=== PATIENT | male | born 1965 | race Caucasian/White ===

== ENCOUNTER 2017-01-01 05:49 | Outpatient (CLI) | payer OTHER ==
[~2017-01-01] VITALS: Ht 172.7 cm; Wt 120.2 kg
[~2017-01-01 05:49] MED LIST: AMLO10TA82 PO; BENA20TA72 PO; CEFD300C PO; FAMO-119 PO; HYDR-34 PO; HYDR-3812 PO; HYDR-757 PO; HYDR25TA4 PO; IBUP800T26 PO; LISI-552 PO; LISI1TAB10 PO; LISI40TA PO; ONDA8TAB13 PO; PHN100C PO; PRED20TA PO; SULF1TAB7 PO
[2017-01-01] MEDS ORDERED: LISI-552 PO (15:25)
[2017-01-01] MEDS ORDERED: LEVE750T19 PO (15:25)
== END 2017-01-01 15:29 ==
LOC: PREOP 05:49
PROVIDERS: ATTEND Surgery
DX: Z01.818 Encounter for other preprocedural examination (principal); Z12.11 Encounter for screening for malignant neoplasm of colon

== ENCOUNTER 2017-01-04 06:23 | Day surgery (SDC) | payer OTHER ==
[~2017-01-04] VITALS: Ht 172.7 cm; Wt 120.2 kg
[~2017-01-04 06:23] MED LIST changes: +LEVE750T19 PO
[2017-01-04] MEDS ORDERED: PROPOFOL INJECTION 50 ML IV ONE (06:32)
[2017-01-04] MEDS ORDERED: fentaNYL INJECTION 100 MCG/2 ML AMP ONE (06:33)
[2017-01-04] MEDS ORDERED: MIDAZOLAM 2 MG/2 ML (VERSED) VIAL ONE (06:33)
[2017-01-04] MEDS ORDERED: LACTATED RINGERS 1,000 ML IV ONE (07:10)
[2017-01-04] MEDS ORDERED: LACTATED RINGERS 1,000 ML IV STA (07:12)
[2017-01-04 07:26] VITALS: BP 141/81
[2017-01-04] MEDS ORDERED: GLYCOPYRROLATE 0.2 MG/ML (ROBINUL) 2 ML VIAL ONE (08:18)
--- NOTE | 2017-01-04 08:20 | Progress Note-Pre Operative ---
Pre-Operative Progress Note H&P Reviewed The H&P was reviewed, patient examined and no changes noted. Time Seen by Provider: 08:10 Date H&P Reviewed: Jan 04, 2017 Time H&P Reviewed: 08:12 Pre-Operative Diagnosis: screening colonoscopy MADIHA CARDONA DO Jan 04, 2017 08:20
--- NOTE | 2017-01-04 09:08 | Progress Note-Post Operative ---
Post-Operative Progess Note Surgeon (s)/G[employer] Planter (s) Surgeon MADIHA CARDONA DO [employer]: none Pre-Operative Diagnosis screening colonoscopy Post-Operative Diagnosis Polyp Diverticula Int. Hemorrhoids AVM Procedure & Operative Findings Date of Procedure 01/04/17 Procedure Performed/Findings Colon with snare Anesthesia Type IV sedation by BRAZING MACHINE OPERATOR Estimated Blood Loss Estimated blood loss (mL): scant Specimens/Packing Specimens Removed rectal polyp MADIHA CARDONA DO Jan 04, 2017 09:08
--- NOTE | 2017-01-04 09:10 | Endoscopy Discharge Instruct ---
Endo Procedure/Findings Findings 1.: Polyp 2.: Diverticulosis 3.: Internal Hemorrhoids 4.: Vascular Ectasias Discharge Instructions - Activity: You might feel a little sleepy until tomorrow. This is due to the medicine you received to relax you. Until tomorrow, you should: NOT drive a car, operate machinery or power tools. NOT drink any alcoholic beverages. NOT make any important decisions or sign importortant papers. Do not return to work until tomorrow, unless otherwise instructed. Resume previous activities tomorrow. Diet: Start by taking liquids. If you tolerate liquids, advance to solid food. Make appointment in one week, Instructions: 1.: Colonscopy in 5 years Notify Physician - If you experience excessive bleeding, unusual abdominal pain, fever, or chest pain, contact your doctor immediately. [phone] Follow-Up: - I have received and understand the above instructions and will call my doctor if I have any further questions. Patient Signature Date Nurse Signature Other (Relationship) MADIHA CARDONA DO Jan 04, 2017 09:10
[2017-01-04 09:30] VITALS: BP 118/63
[2017-01-04 10:00] VITALS: BP 113/86
[2017-01-04 10:08] VITALS: BP 113/86
--- NOTE | 2017-01-05 18:21 | OPERATIVE REPORT ---
DATE OF SERVICE: 01/04/2017 PREOPERATIVE DIAGNOSIS: Screening colonoscopy. POSTOPERATIVE DIAGNOSES: 1. Colon polyp. 2. Diverticula. 3. Internal hemorrhoids. 4. Arteriovenous malformation. PROCEDURE: Colonoscopy with snare polypectomy. SURGEON: Reji Amezcua DO. TRANSPORTATION DESIGN ENGINEER: None. ANESTHESIA: IV sedation by MAINTENANCE SCHEDULER. SPECIMEN: Rectal polyp. BLOOD LOSS: Scant. FLUIDS: Per anesthesia. POSTOPERATIVE CONDITION: Stable. INDICATION FOR PROCEDURE: The patient is a 51-year-old male who needed a screening colonoscopy, possible exposure to chemicals at [facility]. FINDINGS: The patient had diverticula in the sigmoid and descending colon. He also had a polyp in the rectal portion, just above the rectal vault. He had a small AVM seen in the descending colon as well and some small internal hemorrhoids. PROCEDURE NOTE: After informed consent was obtained, the patient was brought to the endoscopy suite, placed in the left lateral decubitus position. He was administered IV sedation during the case. His vitals were monitored by the MAINTENANCE SCHEDULER. A scope was inserted, pushed all the way to about [address], I noted some diverticula and AVM, took a picture of this and then once in the cecum, took pictures of the appendiceal orifice, noted the ileocecal valve and slowly withdrew the scope, insufflating to look circumferentially at the muñiz, looking at the cecum up the ascending colon to the hepatic flexure, then down to transverse colon, and splenic flexure. There was lot of liquid, able to suction most of this, some large pieces of retained food, but able remove these out of the way. Continued down the transverse colon, the splenic flexure, into the descending colon and then down into the sigmoid colon and finally into the rectum. Just above the rectal vault, saw a polyp, took a picture of this and then did a snare polypectomy. Removed the whole thing, sent to pathology. Then, down in the rectal vault, retroflexed in the rectal vault, saw some small internal hemorrhoids, took a picture and then removed the scope. The patient tolerated the procedure and was recovered in the endoscopy suite. Otherwise, tolerated this procedure well. Job ID: [id number] DocumentID: [id number] Dictated Date: 01/04/2017 10:30:41 Back Tender Paper Machine Date: 01/05/2017 04:13:43 Dictated By: REJI AMEZCUA, DO
== END 2017-01-04 10:07 | disposition home or self-care (01) ==
LOC: ENDO 06:23
PROVIDERS: ATTEND Surgery
DX: Z12.11 Encounter for screening for malignant neoplasm of colon (principal); D12.8 Benign neoplasm of rectum; K57.30 Diverticulosis of large intestine without perforation or abscess without bleeding; K64.8 Other hemorrhoids; I10 Essential (primary) hypertension; G47.33 Obstructive sleep apnea (adult) (pediatric); G40.909 Epilepsy, unspecified, not intractable, without status epilepticus; E66.01 Morbid (severe) obesity due to excess calories; Z87.442 Personal history of urinary calculi; Z79.899 Other long term (current) drug therapy; Z68.41 Body mass index [BMI] 40.0-44.9, adult

== ENCOUNTER → 2017-09-14 | Outpatient (CLI) | payer OTHER ==
[~2017-09-14] MED LIST changes: +ACHD5005 PO; -HYDR-3812 PO
--- NOTE | 2017-09-14 16:50 | Diagnostic Imaging Report ---
INDICATION: Left trochanteric bursitis and left hip pain. TIME OF EXAMINATION: 4:24 PM. FINDINGS: An AP view of the pelvis and two views of the left hip were obtained. The femoroacetabular alignment is normal. There is superior joint space narrowing bilaterally, consistent with degenerative change. The femoral heads and necks are intact. No fractures are seen. The rami are intact. IMPRESSION: Bilateral degenerative changes. No acute bony abnormality is detected. Dictated by: Dictated on workstation # [id number]
== END ==
LOC: RAD 15:49
PROVIDERS: ATTEND Nurse Practitioner
DX: M16.0 Bilateral primary osteoarthritis of hip (principal); M70.62 Trochanteric bursitis, left hip

== ENCOUNTER 2018-01-04 15:48 | Outpatient (RCR) | payer OTHER | END 2018-02-07 15:45 | disposition home or self-care (01) | PROVIDERS: ATTEND Nurse Practitioner | DX: M25.552 Pain in left hip (principal) ==

== ENCOUNTER 2018-08-17 12:12 | Outpatient (CLI) | payer OTHER ==
[~2018-08-17] VITALS: Ht 172.7 cm; Wt 125.2 kg
[2018-08-17 12:20] VITALS: BP 132/72
[2018-08-17] MEDS ORDERED: LISI1TAB10 PO (12:37)
[2018-08-17] MEDS ORDERED: AMLO10TA7 PO (12:37)
== END 2018-08-17 12:30 | disposition home or self-care (01) ==
LOC: PREOP 12:12
PROVIDERS: ATTEND Orthopaedic Surgery
DX: Z01.818 Encounter for other preprocedural examination (principal)
CPT/HCPCS: 87081

== ENCOUNTER 2018-08-24 08:40 | Day surgery (SDC) | payer OTHER ==
--- NOTE | 2018-08-15 12:12 | HISTORY AND PHYSICAL ---
DATE OF SERVICE: ADMISSION HISTORY AND PHYSICAL This will be for outpatient surgery on 08/24/2018 DATE OF ADMISSION: 08/24/2018. DATE OF SURGERY: 08/24/2018. HISTORY OF PRESENT ILLNESS: The patient is a 53-year-old gentleman with complaints of left hip pain. He reports -year history of pain in his groin and buttock. He reports this has been progressive in nature and activity limiting at times. He denies back pain and denies paresthesias. The patient does not desire total hip arthroplasty and elected to proceed with an injection to try to obtain some temporary relief. Radiographs revealed moderate to severe left hip osteoarthritis. REVIEW OF SYSTEMS: No chest pain, no shortness of breath. No dysuria. PAST MEDICAL HISTORY: Back pain, hypertension, sleep apnea, epilepsy. PAST SURGICAL HISTORY: Bilateral knee arthroscopies. FAMILY HISTORY: Significant for diabetes, cancer, cardiovascular disease. PRIMARY CARE PROVIDER: Dr. Mckenzie. MEDICATIONS: 1. Amlodipine. 2. Keppra. 3. Lisinopril. 4. Meloxicam. ALLERGIES: No known drug allergies. SOCIAL HISTORY: The patient denies alcohol and tobacco use. PHYSICAL EXAMINATION: GENERAL: The patient is well developed, well nourished, in no acute distress. HEENT: Normocephalic, atraumatic. Pupils equal, round and reactive to light. Oropharynx is clear. NECK: Supple, no lymphadenopathy. LUNGS: Clear to auscultation bilaterally. HEART: Regular rate and rhythm. ABDOMEN: Soft, nontender, nondistended. EXTREMITIES: The patient ambulates with a Trendelenburg gait on the left. He has pain with internal and external rotation of the hip on the left with approximately 10 degrees of internal rotation and 30 degrees of external rotation. He has pain with internal and external rotation of the hip. IMPRESSION: Left hip osteoarthritis. PLAN: Left hip intraarticular injection. The risks, benefits, options, ramifications and recovery were discussed at length with the patient. He understands and wishes to proceed. Job ID: [id number] DocumentID: [id number] Dictated Date: 08/15/2018 11:20:18 Hosiery Mender Date: 08/15/2018 12:11:02 Dictated By: DESTINY WEST MD
[~2018-08-24] VITALS: Ht 172.7 cm; Wt 125.2 kg
[~2018-08-24 08:40] MED LIST changes: +AMLO10TA7 PO
[2018-08-24 09:00] VITALS: BP 127/85
[2018-08-24] MEDS: LACTATED RINGERS 1,000 ML IV PRN ×2 (09:20→11:45)
[2018-08-24] MEDS ORDERED: HYDROcodone/APAP 7.5 MG/325 MG (LORTAB, LORCET PLUS) TABLET PO PRN (09:30)
[2018-08-24] MEDS ORDERED: DEXAMETHASONE 10 MG/ML (DECADRON) 1 ML VIAL ONE (09:48)
[2018-08-24] MEDS ORDERED: LIDOCAINE 1% INJ 20 ML 20 ML VIAL ONE (09:48)
[2018-08-24] MEDS ORDERED: BUPIVACAINE 0.25% 30 ML (SENSORCAINE) VIAL ONE (09:48)
[2018-08-24] MEDS ORDERED: MIDAZOLAM 2 MG/2 ML (VERSED) VIAL ONE (10:05)
[2018-08-24] MEDS ORDERED: methylPREDNISolone 40 MG/ML (DEPO MEDROL) VIAL ONE ×2 (11:17→11:39)
[2018-08-24] MEDS ORDERED: IOPAMIDOL 61% 30 ML (ISOVUE 300) VIAL IV ONE (11:22)
[2018-08-24] MEDS ORDERED: proPOfol 200 MG/20 ML (DIPRIVAN) VIAL IV ONE (11:22)
[2018-08-24] MEDS ORDERED: ONDANSETRON 4 MG/2 ML (SDV) Z0FRAN IVP PRN (12:00)
[2018-08-24] MEDS ORDERED: morphine INJ 10 MG/ML 1ML (SYR OR VIAL) IVP ONE (12:00)
[2018-08-24] MEDS ORDERED: MEPERIDINE (DEMEROL) INJ 50 MG/ML IVP ONE (12:00)
--- NOTE | 2018-08-24 12:15 | OPERATIVE REPORT ---
DATE OF SERVICE: 08/24/2018 PREOPERATIVE DIAGNOSIS: Left hip primary osteoarthritis. POSTOPERATIVE DIAGNOSIS: Left hip primary osteoarthritis. PROCEDURE: Left hip intraarticular injection. SURGEON: Destiny West MD REGISTERED PHARMACY TECHNICIAN: FLOR Knight, who assisted throughout the procedure. ANESTHESIA: Monitored anesthesia care. ESTIMATED BLOOD LOSS: Is not applicable. DRAINS: None. COMPLICATIONS: None. POSTOPERATIVE PLAN: No impact activities for 24 hours. The patient was transferred to the recovery room awake and in stable condition. STATEMENT OF MEDICAL NECESSITY: The patient is a 53-year-old gentleman with known osteoarthritis of his left hip. He was not desiring any total hip arthroplasty and was trying to obtain symptomatic relief; therefore, elected to proceed with an intraarticular injection understanding that this would not cure his arthritis, but could provide some symptomatic relief. DESCRIPTION OF PROCEDURE: After risks and benefits of procedure were discussed and questions were answered and informed consent was signed and placed on chart, the operative site was confirmed in the preoperative holding and initialed by the surgeon. The patient was transferred to the operating room and after adequate levels of monitored anesthesia care was obtained, a timeout was called confirming the operative site. Under sterile conditions, the lateral aspect of the left hip was injected with plain lidocaine. Then, under fluoroscopic guidance, a spinal needle was passed intraarticularly and an arthrogram was performed confirming intraarticular placement. The hip joint was then injected with 80 mg of Depo-Medrol and 2 mg of Marcaine. The needle was withdrawn. The patient was transferred to recovery room awake and in stable condition. Job ID: [id number] DocumentID: [id number] Dictated Date: 08/24/2018 09:30:55 Patternmaker [employer] Date: 08/24/2018 12:14:33 Dictated By: DESTINY WEST MD
[2018-08-24 12:18] VITALS: BP 116/76
[2018-08-24] MEDS ORDERED: ACHD5005 PO (12:27)
[2018-08-24 12:48] VITALS: BP 123/84
[2018-08-24 13:00] VITALS: BP 123/84
--- NOTE | 2018-08-24 13:30 | Anesthesia-General Post-Op ---
MAC Patient Condition Mental Status/LOC: Same as Preop Cardiovascular: Satisfactory Nausea/Vomiting: Absent Respiratory: Satisfactory Pain: Controlled Complications: Absent Post Op Complications Complications None Follow Up Care/Instructions Patient Instructions None needed. Anesthesiology Discharge Order Discharge Order Patient is doing well, no complaints, stable vital signs, no apparent adverse anesthesia problems. No complications reported per nursing. JOSE ROBERTO ELLIOTT CRNA Aug 24, 2018 13:30
--- NOTE | 2018-08-24 15:51 | Diagnostic Imaging Report ---
INDICATION: Fluoroscopy for left hip injection. EXAMINATION: Fluoroscopy was provided for Dr. Linn for left hip injection. FINDINGS: 7 seconds of fluoroscopy was utilized. Single image of the left hip demonstrates a small amount of intra-articular contrast. IMPRESSION: Fluoroscopy for left hip injection. Dictated by: Dictated on workstation # [id number]
== END 2018-08-24 13:00 | disposition home or self-care (01) ==
LOC: SDC 08:40
PROVIDERS: ATTEND Orthopaedic Surgery
DX: M16.12 Unilateral primary osteoarthritis, left hip (principal); I10 Essential (primary) hypertension; G40.909 Epilepsy, unspecified, not intractable, without status epilepticus; G47.33 Obstructive sleep apnea (adult) (pediatric); Z79.899 Other long term (current) drug therapy

== ENCOUNTER → 2020-04-02 | Outpatient (CLI) | payer OTHER ==
[~2020-04-02] MED LIST changes: +AMLO-251 PO; -AMLO10TA7 PO; +LISI1TAB26 PO
--- NOTE | 2020-04-02 15:04 | Diagnostic Imaging Report ---
INDICATION: Left foot pain. TIME OF EXAM: 11:14 AM 3 views of the left foot were obtained. FINDINGS: The metatarsals are intact. Phalanges are intact. Midfoot and hindfoot are unremarkable apart from posterior and plantar calcaneal spurs. No fractures are seen. IMPRESSION: No acute bony abnormality is detected. Dictated by: Dictated on workstation # [id number]
== END ==
LOC: RAD 11:01
PROVIDERS: ATTEND Physician Assistant
DX: M79.672 Pain in left foot (principal)
CPT/HCPCS: 73630

== ENCOUNTER → 2020-04-03 | Outpatient (CLI) | payer OTHER | LOC: LABNPT 08:17 | PROVIDERS: ATTEND Physician Assistant | DX: R51.9 Headache, unspecified (principal); Z20.828 Contact with and (suspected) exposure to other viral communicable diseases | CPT/HCPCS: 87635 ==

== ENCOUNTER → 2020-04-29 | Outpatient (CLI) | payer OTHER ==
--- NOTE | 2020-04-29 16:59 | Diagnostic Imaging Report ---
PROCEDURE: MR imaging left lower extremity without contrast. TECHNIQUE: Multiplanar, multisequence non contrast enhanced MR imaging of the left lower extremity was accomplished. INDICATION: Left foot pain and swelling. Plantar fascial fibromatosis. COMPARISON: Radiographs from 04/02/2020. FINDINGS: No acute fracture is seen in the left foot and ankle. There is moderate bone marrow edema in the cuboid with mild bone marrow edema in the navicular, cuneiforms and metatarsal bases. Multiple erosions are seen in the cuboid, the 2nd through 4th metatarsal bases and the lateral cuneiform. Erosive changes seen at the anterior navicular as well. There is a focal osteochondral lesion at the medial talar dome. The anterior and posterior syndesmotic ligaments are intact. The anterior and posterior talofibular ligaments are intact. The calcaneofibular ligament is intact. The deep fibers of the deltoid ligament are intact. The spring ligament appears intact. The sinus tarsi demonstrates normal fatty signal. There is mild thickening at the origin of the central plantar fascia with no tear seen. No nodularity is seen of the plantar fascia. The Achilles tendon is intact. There is increased fluid in the peroneal tendon sheath consistent with a moderate tenosynovitis. There is moderate tendinosis of the peroneus longus tendon with longitudinal split tearing of the inframalleolar tendon. The peroneus brevis tendon is intact. The flexor tendons are intact. The extensor tendons are intact. There is moderate edema and atrophy in the musculature about the foot. No masses or fluid collections are seen. IMPRESSION: 1. Multifocal erosive changes in the midfoot, concerning for inflammatory arthropathy such as rheumatoid or possibly gout. 2. Moderate peroneal tenosynovitis with tendinosis and partial tearing of the peroneus longus tendon. 3. Generalized muscular atrophy and edema, which is nonspecific, may be neurogenic. 4. Mild thickening at the origin of the plantar fascia, no nodularity is seen. Dictated by: Dictated on workstation # [id number]
== END ==
LOC: RAD 15:30
PROVIDERS: ATTEND Podiatrist
DX: M72.2 Plantar fascial fibromatosis (principal)

== ENCOUNTER 2021-06-02 13:07 | Emergency (ER) | payer OTHER ==
[~2021-06-02 13:07] MED LIST changes: -LISI-552 PO; -LISI1TAB26 PO; +LISI1TAB48 PO; +LISI20TA26 PO
[2021-06-02] MEDS ORDERED: morphine INJ 10 MG/ML 1ML (SYR OR VIAL) IVP STA ×2 (14:09→16:03)
[2021-06-02] MEDS ORDERED: ONDANSETRON 4 MG/2 ML (SDV) Z0FRAN IVP ONE (14:15)
[2021-06-02] MEDS ORDERED: NS IV 1000 ML 1,000 ML IV SCH (14:15)
[2021-06-02 14:33] LABS: BASOPHILS # (AUTO) 0.1 10^3/uL (0.0-0.1); BASOPHILS % (AUTO) 1 % (0-10); EOSINOPHILS # (AUTO) 0.2 10^3/uL (0.0-0.3); EOSINOPHILS % (AUTO) 2 % (0-10); HEMATOCRIT 48 % (40-54); HEMOGLOBIN 16.7 g/dL (13.3-17.7); LYMPHOCYTES % (AUTO) 17 % (12-44); MEAN CORPUSCULAR HEMOGLOBIN 30 pg (25-34); MEAN CORPUSCULAR HGB CONC 35 g/dL (32-36); MEAN CORPUSCULAR VOLUME 88 fL (80-99); MEAN PLATELET VOLUME 8.9 fL (9.0-12.2); MONOCYTES # (AUTO) 0.8 10^3/uL (0.0-1.0); MONOCYTES % (AUTO) 7 % (0-12); NEUTROPHILS # (AUTO) 8.7 10^3/uL (1.8-7.8); NEUTROPHILS % (AUTO) 73 % (42-75); PLATELET COUNT 215 10^3/uL (130-400); WHITE BLOOD COUNT 11.9 10^3/uL (4.3-11.0)
--- NOTE | 2021-06-02 14:34 | ED Abdominal Pain ---
General Chief Complaint: Abdominal/GI Problems Stated Complaint: ABD PAIN Nursing Triage Note: AMB TO ROOM WITH C/O OF LOW ABD PAIN ONSET LAST NIGHT. Source of Information: Patient Exam Limitations: No Limitations (MINDI SAAMNIEGO STUDENT) History of Present Illness Date Seen by Provider: Jun 02, 2021 Time Seen by Provider: 14:15 Initial Comments 56 yoM presents to ED with cc of lower abdominal pain that began last night around 8PM. He was able to sleep last night but awoke to worsening pain radiating into scrotum which is now rated 9/10. Pain is aggravated by movement. Patient has not defecated or passed gas today but is able to urinate and denies hematuria, N/V, SOA, and chest pain. Abdomen is tender in both lower quadrants and he is guarding but bowel sounds are audible. Patient reports kidney stones in distant past and believes this pain may be similar. He is notably uncomfortable and will be given morphine while awaiting CBC, UA, and CT. Timing/Duration: 12-24 Hours Severity/Quality: Severe Location: RLQ, LLQ Radiation: Groin Modifying Factors: Improves With Movement Associated Symptoms: No Back Pain, No Chest Pain, No Fever/Chills, No Headache, No Nausea/Vomiting, No Shortness of Air (MINDI SAMANIEGO STUDENT) Allergies and Home Medications Allergies Coded Allergies: No Known Drug Allergies (Unverified , 01/01/17) Patient Home Medication List Home Medication List Reviewed: Yes (KARAN RODRIGUEZ MD) Amlodipine Besylate (Amlodipine Besylate) 10 Mg Tablet, 10 MG PO DAILY, (Reported) Entered as Reported by: JOSE MERINO on 08/17/18 1237 Ciprofloxacin HCl (Cipro) 500 Mg Tablet, 500 MG PO BID Prescribed by: KARAN RODRIGUEZ on 06/02/21 1608 Hydrocodone Bit/Acetaminophen (Lortab 5 Mg Tablet) 1 Tab Tab, 1 TAB PO Q4H PRN for PAIN-MODERATE Prescribed by: PAMELA TORREZ on 08/24/18 1227 Hydrocodone/Acetaminophen (Hydrocodone-Acetamin 7.5-325) 1 Each Tablet, 1 EACH PO Q6H PRN for PAIN-MODERATE (5-7) Prescribed by: KARAN RODRIGUEZ on 06/02/21 1609 Levetiracetam (Keppra) 750 Mg Tablet, 750 MG PO BID, (Reported) Entered as Reported by: TRISTON DOLAN on 01/01/17 1525 Lisinopril/Hydrochlorothiazide (Lisinopril-Hctz 20-25 mg Tab) 1 Each Tablet, 1 EACH PO DAILY, (Reported) Entered as Reported by: JOSE MERINO on 08/17/18 1237 Metronidazole (Metronidazole) 500 Mg Tablet, 500 MG PO TID Prescribed by: KARAN RODRIGUEZ on 06/02/21 1608 Ondansetron (Ondansetron Odt) 4 Mg Tab.rapdis, 4 MG PO Q8H PRN for nausea Prescribed by: KARAN RODRIGUEZ on 06/02/21 1608 Review of Systems Review of Systems Constitutional: No chills, No diaphoresis, No dizziness, No fever EENTM: No Nose Congestion, No Throat Pain Respiratory: Denies Cough, Denies Shortness of Air, Denies Wheezing Cardiovascular: Denies Chest Pain, Denies Edema, Denies Syncope Gastrointestinal: Abdominal Pain; Denies Blood Streaked Stools; Constipated; Denies Diarrhea, Denies Nausea, Denies Vomiting Genitourinary: Denies Flank Pain, Denies Hematuria, Denies Urgency Musculoskeletal: No muscle stiffness, No muscle cramps Skin: no symptoms reported Psychiatric/Neurological: Denies Headache, Denies Weakness Endocrine: Denies Excessive Sweating, Denies Flushing, Denies Increased Hunger, Denies Increased Thrist Hematologic/Lymphatic: No Symptoms Reported ([employer]) Past Luxjobk-Qvllmg-Gvyarf Hx Patient Social History Tobacco Use?: No Use of E-Cig and/or Vaping dev: No Substance use?: No ([employer]) Immunizations Up To Date First/Initial COVID19 Vaccinat: JULY Second COVID19 Vaccination Pavan: AUGUST 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[employer] ([employer]) Seasonal Allergies Seasonal Allergies: No ([employer]) Past Medical History Surgeries: Yes (right/left meniscus X3) Orthopedic Respiratory: No Sleep Apnea Currently Using CPAP: Yes Cardiac: Yes Hypertension Neurological: Yes (SEIZURE DISORDER/TREMORS IN HANDS) Seizure Disorder Reproductive Disorders: No Sexually Transmitted Disease: No HIV/AIDS: No Genitourinary: No Kidney Stones Gastrointestinal: No Musculoskeletal: Yes (IN KNEES) Arthritis Endocrine: No HEENT: No Loss of Vision: Denies Hearing Impairment: Denies Cancer: No Psychosocial: No Integumentary: No Blood Disorders: No Adverse Reaction/Blood Tranf: No (N/A) (MINDI SAMANIEGO [employer] STUDENT) Family Medical History No Pertinent Family Hx (ZEYNEPMINDI WHITMAN [employer] STUDENT) Physical Exam Vital Signs Vital Signs - First Documented 06/02/21 13:29 Temp 36.7 Pulse 75 Resp 18 B/P (MAP) 184/117 (139) Pulse Ox 99 O2 Delivery Room Air (KARAN RODRIGUEZ MD) Vital Signs Capillary Refill : Less Than 3 Seconds (MINDI SAMANIEGO [employer] STUDENT) Height/Weight/BMI Height: 5'8.00" Weight: 276lbs. 0.0oz. 125.714192is; 42.0 BMI Method:Stated General Appearance: WD/WN, mild distress HEENT: PERRL/EOMI, normal ENT inspection, pharynx normal Neck: non-tender, full range of motion, supple, normal inspection Respiratory: chest non-tender, lungs clear, normal breath sounds, no respiratory distress, no accessory muscle use Cardiovascular: no edema, no gallop, no JVD, no murmur Gastrointestinal: normal bowel sounds, guarding, rebound, tenderness Rectal: deferred Extremities: non-tender, normal inspection, no pedal edema, no calf tenderness Skin: normal color, warm/dry Lymphatic: no adenopathy (ZEYNEPMINDI WHITMAN [employer] STUDENT) Progress/Results/Core Measures Results/Orders Lab Results Laboratory Tests Test 06/02/21 14:24 06/02/21 14:38 Range/Units White Blood Count 11.9 H 4.3-11.0 10^3/uL Red Blood Count 5.49 4.30-5.52 10^6/uL Hemoglobin 16.7 13.3-17.7 g/dL Hematocrit 48 40-54 % Mean Corpuscular Volume 88 80-99 fL Mean Corpuscular Hemoglobin 30 25-34 pg Mean Corpuscular Hemoglobin Concent 35 32-36 g/dL Red Cell Distribution Width 12.6 10.0-14.5 % Platelet Count 215 130-400 10^3/uL Mean Platelet Volume 8.9 L 9.0-12.2 fL Immature Granulocyte % (Auto) 1 % Neutrophils (%) (Auto) 73 42-75 % Lymphocytes (%) (Auto) 17 12-44 % Monocytes (%) (Auto) 7 0-12 % Eosinophils (%) (Auto) 2 0-10 % Basophils (%) (Auto) 1 0-10 % Neutrophils # (Auto) 8.7 H 1.8-7.8 10^3/uL Lymphocytes # (Auto) 2.0 1.0-4.0 10^3/uL Monocytes # (Auto) 0.8 0.0-1.0 10^3/uL Eosinophils # (Auto) 0.2 0.0-0.3 10^3/uL Basophils # (Auto) 0.1 0.0-0.1 10^3/uL Immature Granulocyte # (Auto) 0.1 0.0-0.1 10^3/uL Sodium Level 137 135-145 MMOL/L Potassium Level 3.5 L 3.6-5.0 MMOL/L Chloride Level 102 98-107 MMOL/L Carbon Dioxide Level 25 21-32 MMOL/L Anion Gap 10 5-14 MMOL/L Blood Urea Nitrogen 10 7-18 MG/DL Creatinine 0.74 0.60-1.30 MG/DL Estimat Glomerular Filtration Rate 110 BUN/Creatinine Ratio 14 Glucose Level 100 70-105 MG/DL Calcium Level 9.3 8.5-10.1 MG/DL Urine Color YELLOW Urine Clarity CLEAR Urine pH 6.0 5-9 Urine Specific [place] 1.020 1.016-1.022 Urine Protein NEGATIVE NEGATIVE Urine Glucose (UA) NEGATIVE NEGATIVE Urine Ketones NEGATIVE NEGATIVE Urine Nitrite NEGATIVE NEGATIVE Urine Bilirubin NEGATIVE NEGATIVE Urine Urobilinogen 0.2 < = 1.0 MG/DL Urine Leukocyte Esterase NEGATIVE NEGATIVE Urine RBC (Auto) TRACE-I H NEGATIVE Urine RBC NONE /HPF Urine WBC NONE /HPF Urine Squamous Epithelial Cells NONE /HPF Urine Crystals NONE /LPF Urine Bacteria NEGATIVE /HPF Urine Casts NONE /LPF Urine Mucus NEGATIVE /LPF Urine Culture Indicated NO (KARAN RODRIGUEZ MD) My Orders Orders - KARAN RODRIGUEZ MD Ed Iv/Invasive Line Start (06/02/21 14:09) Cbc With Automated Diff (06/02/21 14:09) Basic Metabolic Panel (06/02/21 14:09) Ua Culture If Indicated (06/02/21 14:09) Ns Iv 1000 Ml (Sodium Chloride 0.9%) (06/02/21 14:15) Morphine Injection (Morphine Injection (06/02/21 14:09) Ondansetron Injection (Zofran Injectio (06/02/21 14:15) Ct Abdomen/Pelvis Wo (06/02/21 14:20) Ciprofloxacin Iv 400mg/200ml (Cipro Iv S (06/02/21 16:00) Metronidazole 500mg/100ml Ivpb (Flagyl 5 (06/02/21 16:00) Morphine Injection (Morphine Injection (06/02/21 16:03) Hydrocodone/Apap 7.5/325 Tab (Lortab 7. (06/02/21 16:45) (KARAN RODRIGUEZ MD) Medications Given in ED (KARAN RODRIGUEZ MD) Vital Signs/I&O 06/02/21 06/02/21 13:29 18:09 Temp 36.7 Pulse 75 56 Resp 18 18 B/P (MAP) 184/117 (139) 140/87 Pulse Ox 99 97 O2 Delivery Room Air Room Air (KARAN RODRIGUEZ MD) Blood Pressure Mean: 139 Progress Progress Note : Time: 16:03 Progress Note 56-year-old male chief complaint diffuse lower abdominal pain. Onset last evening about 8 or 9. Was able to sleep however when he got up this morning he had worsening pain. It radiates down into the scrotum. Patient has not had a bowel movement since yesterday and normally goes every day. He is slightly nauseous, anorexic. No reported fevers or chills. No chest pain, shortness of breath, URI symptoms. Physical exam is remarkable for significant abdominal tenderness with involuntar y guarding no real rebound. Bowel sounds are present. Pain is not really focal but diffuse across the entire lower abdomen. Rest of his exam is reassuring. He is quite hypertensive, likely secondary to pain. Further history reveals that the patient had a colonoscopy about 5 years ago, this was unremarkable. He tells me that he has been eating more popcorn over the course of the last week. He was concerned that this might be the cause of his current state. CT scan of the abdomen and pelvis shows pretty significant diverticulitis without evidence of abscess or perforation. Patient has been treated with a liter of IV fluids here in the department. He has gotten IV morphine, Cipro and Flagyl. Anticipate being able to control his pain with hydrocodone on an outpatient basis with Cipro and Flagyl for the next 10 days. Follow-up with general surgery, Dr. Hay. Follow-up also with his primary care physician. Patient seems comfortable with this plan of care. All questions have been sought and answered. (KARAN RODRIGUEZ MD) Diagnostic Imaging Diagonstic Imaging: CT Comments [facility] [place], [place] NAME: JR SEARS [facility] REC#: [id number] PT STATUS: REG ER : 1965 PHYSICIAN: KAARN RODRIGUEZ MD ADMIT DATE: 06/02/21/ER Draft Date of Exam:06/02/21 CT ABDOMEN/PELVIS WO PROCEDURE: CT abdomen and pelvis without contrast. TECHNIQUE: Multiple contiguous axial images were obtained through the abdomen and pelvis without the use of intravenous contrast. Auto Exposure Controls were utilized during the CT exam to meet ALARA standards for radiation dose reduction. INDICATION: Lower abdominal pain. CORRELATION is made with prior CT from 04/28/2015. The lung bases are clear. There appears to be some generalized low density throughout the liver consistent with hepatic steatosis. No discrete liver mass is detected. Gallbladder is unremarkable. There is no biliary ductal dilatation. The pancreas and spleen are unremarkable. No adrenal mass is detected. No renal calculi or hydronephrosis is detected. There is diverticulosis of the descending and sigmoid colon. There is significant inflammation at the junction of the descending colon and sigmoid. There is a segment of wall thickening and significant surrounding inflammatory stranding. Features are consistent with acute diverticulitis. No abscess formation or bowel obstruction is seen. There is no free air. There is a small fat-containing umbilical hernia. No free fluid is seen. The bladder and prostate are unremarkable. There is a left hip prosthesis. IMPRESSION: 1. Uncomplicated diverticulosis. 2. Features consistent with acute diverticulitis of the junction of the descending colon and sigmoid. No abscess formation or bowel obstruction is identified. Dictated on workstation # [id number] Dict: 06/02/21 1450 Trans: 06/02/21 1457 [facility] [id number] Interpreted by: ESTEPHANIA CARTER MD Electronically signed by: (KARAN RODRIGUEZ MD) Departure Impression Primary Impression: Acute diverticulitis Disposition: HOME, SELF-CARE Condition: Stable Departure-Patient Inst. Decision time for Depature: 16:06 (KARAN RODRIGUEZ MD) Referrals: SOPHIA VOGEL MD (PCP/Family) Primary Care Physician Patient Instructions: Diverticulitis Add. Discharge Instructions: Follow a clear liquid diet for the next 12 to 24 hours. Take the antibiotics as scheduled, Flagyl for 7 days 3 times a day, Cipro twice a day for 10 days. I have also prescribed pain and nausea medications for you. The hydrocodone can become habit forming. Do not drive and take this medication. You should take stool softeners daily, twice a day such as Colace. Also follow a diet rich in green leafy vegetables, fruits such as berries, apple juice and prune juice. Follow-up with your primary care physician. I am also placing contact information for general surgery, Dr. Hay on your discharge paperwork. You may need a repeat colonoscopy once this infection is healed. Return to the emergency room for worsening pain, vomiting, symptoms not improving after 48 hours or any other emergent concerns Scripts Ondansetron (Ondansetron Odt) 4 Mg Tab.rapdis 4 MG PO Q8H PRN for nausea, #20 TAB Prov: KARAN RODRIGUEZ MD 06/02/21 Hydrocodone/Acetaminophen (Hydrocodone-Acetamin 7.5-325) 1 Each Tablet 1 EACH PO Q6H PRN for PAIN-MODERATE (5-7), #20 TAB Prov: KARAN RODRIGUEZ MD 06/02/21 Metronidazole (Metronidazole) 500 Mg Tablet 500 MG PO TID for 7 Days, #21 TAB Prov: KARAN RODRIGUEZ MD 06/02/21 Ciprofloxacin HCl (Cipro) 500 Mg Tablet 500 MG PO BID, #20 TAB Prov: KARAN RODRIGUEZ MD 06/02/21 Verification and Attestation of Medical Student E/M Service A medical student performed and documented this service in my presence. I reviewed and verified all information documented by the medical student and made modifications to such information, when appropriate. I personally performed the physical exam and medical decision making. Karan Rodriguez, Jun 02, 2021,16:11 (KARAN RODRIGUEZ MD) Copy Copies To 1: SOPHIA VOGEL MD, AMANDA MED STUDENT Jun 02, 2021 14:34 KARAN RODRIGUEZ MD Jun 02, 2021 15:24
[2021-06-02 14:44] LABS: POTASSIUM 3.5 MMOL/L (3.6-5.0)
[2021-06-02 14:45] LABS: CALCIUM 9.3 MG/DL (8.5-10.1)
[2021-06-02 14:46] LABS: BILIRUBIN,URINE NEGATIVE (NEGATIVE); CLARITY,URINE CLEAR; COLOR,URINE YELLOW; GLUCOSE, URINE (UA) NEGATIVE (NEGATIVE); KETONES,URINE NEGATIVE (NEGATIVE); LEUKOCYTE ESTERASE ,URINE NEGATIVE (NEGATIVE); NITRITE,URINE NEGATIVE (NEGATIVE); PROTEIN,URINE NEGATIVE (NEGATIVE)
[2021-06-02 14:49] LABS: CREATININE SERUM 0.74 MG/DL (0.60-1.30)
--- NOTE | 2021-06-02 14:57 | Diagnostic Imaging Report ---
PROCEDURE: CT abdomen and pelvis without contrast. TECHNIQUE: Multiple contiguous axial images were obtained through the abdomen and pelvis without the use of intravenous contrast. Auto Exposure Controls were utilized during the CT exam to meet ALARA standards for radiation dose reduction. INDICATION: Lower abdominal pain. CORRELATION is made with prior CT from 04/28/2015. The lung bases are clear. There appears to be some generalized low density throughout the liver consistent with hepatic steatosis. No discrete liver mass is detected. Gallbladder is unremarkable. There is no biliary ductal dilatation. The pancreas and spleen are unremarkable. No adrenal mass is detected. No renal calculi or hydronephrosis is detected. There is diverticulosis of the descending and sigmoid colon. There is significant inflammation at the junction of the descending colon and sigmoid. There is a segment of wall thickening and significant surrounding inflammatory stranding. Features are consistent with acute diverticulitis. No abscess formation or bowel obstruction is seen. There is no free air. There is a small fat-containing umbilical hernia. No free fluid is seen. The bladder and prostate are unremarkable. There is a left hip prosthesis. IMPRESSION: 1. Uncomplicated diverticulosis. 2. Features consistent with acute diverticulitis of the junction of the descending colon and sigmoid. No abscess formation or bowel obstruction is identified. Dictated by: Dictated on workstation # [id number]
[2021-06-02 15:35] LABS: BACTERIA,URINE NEGATIVE /HPF
[2021-06-02] MEDS ORDERED: CIPROFLOXACIN IV 400MG/200ML 200 ML IV ONE (16:00)
[2021-06-02] MEDS ORDERED: metroNIDAZOLE 500MG/100ML IVPB 100 ML IV ONE (16:00)
[2021-06-02] MEDS ORDERED: CIPR-225 PO (16:08)
[2021-06-02] MEDS ORDERED: ONDA4TAB11 PO (16:08)
[2021-06-02] MEDS ORDERED: HYDR-3817 PO (16:08)
[2021-06-02] MEDS ORDERED: METR-145 PO (16:08)
[2021-06-02] MEDS ORDERED: HYDROcodone/APAP 7.5 MG/325 MG (LORTAB, LORCET PLUS) TABLET PO ONE (16:45)
[2021-06-02 18:09] VITALS: BP 140/87
== END 2021-06-02 18:08 | disposition home or self-care (01) ==
LOC: EDUNIT# 13:07 → ER 13:09
DX: K57.32 Diverticulitis of large intestine without perforation or abscess without bleeding (principal); G47.30 Sleep apnea, unspecified; I10 Essential (primary) hypertension; G40.909 Epilepsy, unspecified, not intractable, without status epilepticus; Z79.899 Other long term (current) drug therapy
CPT/HCPCS: 36415; 74176; 80048; 81000; 85025

== ENCOUNTER → 2021-09-18 | Outpatient (REF) ==
[~2021-09-18] MED LIST changes: +CIPR-225 PO; +HYDR-3817 PO; +METR-145 PO; +ONDA4TAB11 PO
--- NOTE | 2021-09-18 12:07 | Diagnostic Imaging Report ---
FOOT, RIGHT, 3 VIEW INDICATION: Right foot pain. COMPARISON: None available. TECHNIQUE: Three views of the left foot. FINDINGS: No acute or healing fracture. No osseous erosions. Small plantar and dorsal calcaneal spurs. No features of osseous tarsal coalition. Mild degenerative changes of the Lisfranc joint. IMPRESSION: No acute fracture within the right foot. Dictated by: Dictated on workstation # [id number]
== END | disposition home or self-care (01) ==
LOC: OCC 11:47
PROVIDERS: ATTEND Nurse Practitioner Family
DX: Z01.818 Encounter for other preprocedural examination (principal)
CPT/HCPCS: 73630

== ENCOUNTER 2021-12-24 07:07 | Outpatient (CLI) | payer OTHER ==
[~2021-12-24] VITALS: Ht 172.7 cm; Wt 116.3 kg
[2021-12-24] MEDS ORDERED: TMSL.4C PO (09:06)
[2021-12-24] MEDS ORDERED: METO50TA15 PO (09:06)
[2021-12-24] MEDS ORDERED: LISI40TA9 PO (09:06)
[2021-12-24] MEDS ORDERED: FINA5TAB6 PO (09:06)
[2021-12-24] MEDS ORDERED: HYDR25TA4 PO (09:06)
== END 2021-12-24 09:09 ==
LOC: PREOP 07:07
PROVIDERS: ATTEND Surgery
DX: Z01.818 Encounter for other preprocedural examination (principal)

== ENCOUNTER 2022-01-05 09:41 | Day surgery (SDC) | payer OTHER ==
[~2022-01-05] VITALS: Ht 173 cm; Wt 116.3 kg
[~2022-01-05 09:41] MED LIST changes: +FINA5TAB6 PO; +LISI40TA9 PO; +METO50TA15 PO; +TMSL.4C PO
[2022-01-05] MEDS ORDERED: LACTATED RINGERS 1,000 ML IV STA (09:57)
[2022-01-05 10:10] VITALS: BP 143/79
--- NOTE | 2022-01-05 10:20 | Progress Note-Pre Operative ---
Pre-Operative Progress Note Date of Available H&P: Dec 16, 2021 Date H&P Reviewed: Jan 05, 2022 Time H&P Reviewed: 10:13 History & Physical: H&P Reviewed, Patient Examed, No changes noted Pre-Operative Diagnosis: Hx of polyps MADIHA CARDONA DO Jan 05, 2022 10:20
[2022-01-05] MEDS ORDERED: MIDAZOLAM 2 MG/2 ML (VERSED) VIAL ONE (11:18)
[2022-01-05] MEDS ORDERED: PROPOFOL INJECTION 50 ML IV ONE (11:18)
[2022-01-05 11:55] VITALS: BP 117/73
--- NOTE | 2022-01-05 11:55 | Progress Note-Post Operative ---
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 He was administered IV sedation by the GROUND INSTRUCTOR BASIC who then monitored his vitals the entire time, heart rate, blood pressure and pulse ox and the scope was inserted, pushed all the way to about 150 cm and pushed into the cecum, took a picture of appendiceal orifice and then slowly withdrew the scope insufflating the circumferential muñiz looking the cecum, up the ascending colon to the hepatic flexure, then down the transverse colon, splenic flexure, into the descending colon down in the sigmoid and then into the rectal vault and retroflexed the scope. Took a picture of the internal hemorrhoids. Saw diverticula in the sigmoid colon and took a picture; also noted some melanosis. One area I thought I saw AVM and took a picture of this. The patient tolerated the procedure. He was recovered in endoscopy suite. Recommended for repeat colonoscopy in 10 years. Anesthesia Type IV sedation by GROUND INSTRUCTOR BASIC Estimated Blood Loss Estimated blood loss (mL): none Specimens/Packing Specimens Removed none MADIHA CARDONA DO Jan 05, 2022 11:55
--- NOTE | 2022-01-05 11:55 | Endoscopy Discharge Instruct ---
Endo Procedure/Findings Findings 1.: Diverticulosis 2.: Internal Hemorrhoids 3.: Other Findings (Melanosis and ??AVM) Discharge Instructions - Activity: You might feel a little sleepy until tomorrow. This is due to the medicine you received to relax you. Until tomorrow, you should: NOT drive a car, operate machinery or power tools. NOT drink any alcoholic beverages. NOT make any important decisions or sign importortant papers. Do not return to work until tomorrow, unless otherwise instructed. Resume previous activities tomorrow. Diet: Start by taking liquids. If you tolerate liquids, advance to solid food. 1.: Colonscopy in 10 years Notify Physician - If you experience excessive bleeding, unusual abdominal pain, fever, or chest pain, contact your doctor immediately. MADIHA CARDONA DO Jan 05, 2022 11:55
[2022-01-05 12:00] VITALS: BP 119/77
[2022-01-05 12:30] VITALS: BP 132/86
--- NOTE | 2022-01-05 13:28 | Anesthesia-General Post-Op ---
MAC Patient Condition Mental Status/LOC: Same as Preop Cardiovascular: Satisfactory Nausea/Vomiting: Absent Respiratory: Satisfactory Pain: Controlled Complications: Absent Post Op Complications Complications None Follow Up Care/Instructions Patient Instructions None needed. Anesthesiology Discharge Order Discharge Order Patient is doing well, no complaints, stable vital signs, no apparent adverse anesthesia problems. No complications reported per nursing. IRVING ANDINO CRNA Jan 05, 2022 13:28
== END 2022-01-05 12:50 | disposition home or self-care (01) ==
LOC: ENDO 09:41
PROVIDERS: ATTEND Surgery
DX: K57.30 Diverticulosis of large intestine without perforation or abscess without bleeding (principal); K63.89 Other specified diseases of intestine; K64.8 Other hemorrhoids; G47.33 Obstructive sleep apnea (adult) (pediatric); E66.9 Obesity, unspecified; Z68.38 Body mass index [BMI] 38.0-38.9, adult; Z86.010 Personal history of colon polyps; Z87.19 Personal history of other diseases of the digestive system

== ENCOUNTER → 2022-04-21 | Outpatient (CLI) | payer OTHER ==
[2022-04-21 15:33] LABS: BASOPHILS % (AUTO) 1 % (0-10); EOSINOPHILS # (AUTO) 0.1 10^3/uL (0.0-0.3); EOSINOPHILS % (AUTO) 2 % (0-10); HEMATOCRIT 44 % (40-54); HEMOGLOBIN 15.3 g/dL (13.3-17.7); LYMPHOCYTES # (AUTO) 1.8 X 10^3 (1.0-4.0); LYMPHOCYTES % (AUTO) 23 % (12-44); MEAN CORPUSCULAR HEMOGLOBIN 30 pg (25-34); MEAN CORPUSCULAR HGB CONC 35 g/dL (32-36); MEAN CORPUSCULAR VOLUME 84 fL (80-99); MEAN PLATELET VOLUME 8.8 fL (9.0-12.2); MONOCYTES # (AUTO) 0.7 X 10^3 (0.0-1.0); MONOCYTES % (AUTO) 9 % (0-12); NEUTROPHILS # (AUTO) 5.2 X 10^3 (1.8-7.8); NEUTROPHILS % (AUTO) 66 % (42-75); PLATELET COUNT 208 10^3/uL (130-400); WHITE BLOOD COUNT 7.8 10^3/uL (4.3-11.0)
[2022-04-21 15:36] LABS: BILIRUBIN,URINE NEGATIVE (NEGATIVE); CLARITY,URINE CLEAR; COLOR,URINE YELLOW; GLUCOSE, URINE (UA) NEGATIVE (NEGATIVE); KETONES,URINE NEGATIVE (NEGATIVE); LEUKOCYTE ESTERASE ,URINE NEGATIVE (NEGATIVE); NITRITE,URINE NEGATIVE (NEGATIVE); PROTEIN,URINE NEGATIVE (NEGATIVE)
[2022-04-21 15:49] LABS: BACTERIA,URINE NEGATIVE /HPF; RBC,URINE 0-2 /HPF; URINE OTHER FEW SPERM /HPF; WBC,URINE 0-2 /HPF
[2022-04-21 15:58] LABS: ALBUMIN 4.3 GM/DL (3.2-4.5); BILIRUBIN,TOTAL 0.6 MG/DL (0.1-1.0); CALCIUM 9.3 MG/DL (8.5-10.1); CREATININE SERUM 0.87 MG/DL (0.60-1.30); POTASSIUM 3.5 MMOL/L (3.6-5.0); TOTAL PROTEIN 7.1 GM/DL (6.4-8.2)
== END ==
LOC: LAB 15:11
PROVIDERS: ATTEND Nurse Practitioner Family
DX: R10.9 Unspecified abdominal pain (principal)
CPT/HCPCS: 36415; 80053; 81000; 85025

== ENCOUNTER → 2022-06-02 | Outpatient (CLI) | payer OTHER ==
--- NOTE | 2022-06-02 17:14 | Diagnostic Imaging Report ---
Indication: Left knee pain and swelling. Time of Exam: 5:11 PM 3 views of the left knee were obtained. There is medial and patellofemoral compartment degenerative change with joint space narrowing and marginal spurring. There is some spurring of the tibial spines as well. Lateral compartments well-maintained. No fracture, dislocation or effusion is identified. Impression: Degenerative changes. No acute bony abnormality is detected. Dictated by: Dictated on workstation # [id number]
== END ==
LOC: RAD 16:51
PROVIDERS: ATTEND Physician Assistant
DX: M17.12 Unilateral primary osteoarthritis, left knee (principal)
CPT/HCPCS: 73562

== ENCOUNTER → 2022-06-10 | Outpatient (CLI) | payer OTHER ==
--- NOTE | 2022-06-10 09:18 | Diagnostic Imaging Report ---
PROCEDURE: MRI left joint lower extremity without contrast. TECHNIQUE: Multiplanar, multisequence non contrast-enhanced MRI of the left lower extremity was accomplished. INDICATION: Knee pain a couple weeks ago. Prior surgery for meniscal repair. EXAMINATION: Left knee MRI without contrast 06/10/2022. FINDINGS: Diffuse heterogeneous hyperintensity noted on T2-weighted imaging throughout the anterior subcutaneous soft tissues of the knee. A more focal collection of fluid is noted abutting the distal aspect of the patellar tendon and proximal tibia possibly a hematoma. Focal bursitis is another possibility. The underlying patellar tendon is intact. The visualized quadriceps tendon intact. The ACL and PCL appear intact. The MCL is intact. The lateral collateral ligamentous complex is unremarkable. There is severe loss of cartilage over the patellar apex and lateral facet with subchondral cystic change and edema in the patella. There is moderate loss of cartilage with moderate narrowing of both the medial and lateral joint compartments. Myxoid degeneration is seen throughout the lateral meniscus with no discrete tear. There is a horizontal oblique tear within the posterior horn of the medial meniscus. There is a small septated Aguirre cyst. IMPRESSION: 1. Tear of the posterior horn and body of the medial meniscus with myxoid degeneration throughout the lateral meniscus. 2. 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 3. Nonspecific edema and focal fluid in the anterior subcutaneous soft tissues of the knee as detailed above. 4. Ligaments and tendons intact. Dictated by: Dictated on workstation # [id number]
== END ==
LOC: RAD 08:00
PROVIDERS: ATTEND Physician Assistant
DX: S83.242A Other tear of medial meniscus, current injury, left knee, initial encounter (principal); M16.12 Unilateral primary osteoarthritis, left hip; X58.XXXA Exposure to other specified factors, initial encounter
CPT/HCPCS: 73721